=== PATIENT | male | born 1945 | race Caucasian/White ===

== ENCOUNTER 2018-08-18 13:01 | Emergency (ER) | payer MEDICARE, OTHER ==
[~2018-08-18] VITALS: Ht 177.8 cm; Wt 123.2 kg
[2018-08-18 13:50] LABS: BASO # 0.1 10^3/uL (0.0-0.2); BASO % 0.5 % (0.0-1.0); EOS % 0.1 % (0.0-3.0); HEMATOCRIT 39.1 % (42.0-52.0); HEMOGLOBIN 13.4 g/dl (13.5-17.5); LYMPH # 0.8 10^3/uL (1.5-4.5); MEAN CORPUSCULAR HEMOGLOBIN 30.7 pg (27.0-33.0); MEAN CORPUSCULAR HGB CONC 34.3 g/dl (32.0-36.5); MEAN CORPUSCULAR VOLUME 89.5 fl (80.0-96.0); MONO # 1.2 10^3/uL (0.0-0.8); MONO % 8.8 % (0.0-5.0); NEUTROPHILS % 83.8 % (36.0-66.0); PLATELET COUNT, AUTOMATED 199 10^3/uL (150-450); RED BLOOD COUNT 4.37 10^6/uL (4.30-6.10); WHITE BLOOD COUNT 13.1 10^3/uL (4.0-10.0)
[2018-08-18 14:01] LABS: VENOUS BASE EXCESS -6.3 (-2.0-2.0); VENOUS HCO3 18.5 MEQ/L (23.0-27.0); VENOUS O2 SATURATION 89.6 % (60.0-80.0); VENOUS PARTIAL PRESSURE O2 51.4 mmHg (30.0-50.0); VENOUS PH 7.342 UNITS (7.330-7.430); VENOUS STANDARD HCO3 19.2 MEQ/L; VENOUS TOTAL CO2 19.6 MEQ/L (24.0-28.0)
[2018-08-18 14:08] LABS: BLOOD UREA NITROGEN 18 MG/DL (7-18); CARBON DIOXIDE LEVEL 21 MEQ/L (21-32); CHLORIDE LEVEL 107 MEQ/L (98-107); CREATININE FOR GFR 1.07 MG/DL (0.70-1.30); GLOMERULAR FILTRATION RATE > 60.0 (>42); GLUCOSE, FASTING 193 MG/DL (70-100); POTASSIUM SERUM 4.2 MEQ/L (3.5-5.1); SODIUM LEVEL 136 MEQ/L (136-145)
[2018-08-18] MEDS ORDERED: ECOT81TA5 PO (14:15)
[2018-08-18] MEDS ORDERED: IBUP-1022 PO (14:21)
[2018-08-18] MEDS ORDERED: LOSA25TA14 PO (14:21)
[2018-08-18] MEDS ORDERED: PANT40TA3 PO (14:21)
[2018-08-18] MEDS ORDERED: TOPI200T7 PO (14:21)
[2018-08-18] MEDS ORDERED: SERT25TA PO (14:21)
[2018-08-18] MEDS ORDERED: GABA-845 PO (14:21)
[2018-08-18] MEDS ORDERED: GEMF600T5 PO (14:21)
[2018-08-18] MEDS ORDERED: PRAV10TA4 PO (14:21)
[2018-08-18] MEDS ORDERED: METF500T13 PO (14:21)
[2018-08-18] MEDS ORDERED: PROP60TA14 PO (14:21)
[2018-08-18] MEDS ORDERED: CETI5SOL3 PO (14:21)
[2018-08-18 14:39] LABS: ERYTHROCYTE SEDIMENTATION RATE 69 mm/hr (0-20)
[2018-08-18] MEDS ORDERED: ACETAMINOPHEN 325 MG TAB PO ONE (18:00)
[2018-08-18] MEDS ORDERED: NS 1,000 ML IV ONE (18:30)
[2018-08-18 19:07] VITALS: BP 101/58
[2018-08-18] MEDS ORDERED: KETOROLAC 30 MG/ML VIAL (J1885) IV ONE (19:15)
--- NOTE | 2018-08-19 07:17 | REP ---
RIGHT KNEE, COMPLETE: 08/18/2018. Clinical history: Pain, prior surgery, elevated markers for inflammation. Findings: Five views are provided. There are no prior studies. There is a right total knee arthroplasty with the three components align normally in relationship to each other and the torres martinez bone. However, there is a joint effusion seen on the lateral view. I see no osteolysis. There is no visible acute fracture. There appears to be an old healed fracture seen only in part of the proximal fibular shaft. Some subcutaneous edema noted about the knee and upper calf. Impression: 1. Right total knee arthroplasty evident without hardware abnormality but there is a suprapatellar effusion on the lateral view. 2. Bones show some old post-traumatic changes in the proximal fibula. Soft tissue swelling with subcutaneous edema about the lower thigh, knee and upper calf. Electronically Signed by Berto James MD 08/19/2018 09:52 A
--- NOTE | 2018-08-19 07:42 | REP ---
RIGHT FOOT COMPLETE: 08/18/2018. Clinical history: Chronic wound of the right foot with elevated markers for inflammation. Question osteomyelitis. Technique: Four views of the foot were provided. No prior studies. Findings: Plantar and Achilles heel spurs are seen on the posterior calcaneus. Subtalar joints grossly intact. Talonavicular, calcaneocuboid joints show marginal osteophytes but no fracture, disruption. Tarsal bones also show some degenerative changes and spurring at their margins. There is advanced degenerative change at the first MTP joint with narrowing of the joint space and large marginal osteophytes. The ulceration at the plantar aspect of the distal first metatarsal is poorly visualized on the lateral radiograph. I do not see definite destructive lesion that would clearly define osteomyelitis by plain film. The other MTP joints show minor degenerative change but greatest at the 4th. No fracture or destructive lesion of those bones. There is some periosteal reaction along the shaft of the fourth that may reflect prior stress reaction. The phalanges show no acute fracture or degenerative changes at IP joints. No destructive lesions are seen. I do not see subcutaneous emphysema. Impression: 1. 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 The known soft tissue ulceration on the plantar aspect near that joint does not show evidence of lucency or subcutaneous emphysema there in. There is no definite destructive lesion in the bone that would clearly define osteomyelitis by plain film. 2. Degenerative changes in the midfoot, hindfoot, IP joints and at the first MTP joint with the greatest degree of spurring and sclerosis. No acute fracture or destructive lesion visible. 3. Heel spurs. Electronically Signed by Berto James MD 08/19/2018 09:52 A
--- NOTE | 2018-08-19 07:43 | REP ---
RIGHT LOWER EXTREMITY DOPPLER VENOUS ULTRASOUND: 08/18/2018. Comparison: None. Clinical history: Right lower extremity pain and swelling, evaluate for DVT. Technique: The deep venous system of the right lower extremity is evaluated with cano scale imaging, compression ultrasound, color imaging and duplex Doppler interrogation. Examination from the groin through the popliteal fossa into the proximal calf. Findings: There is full compressibility from the common femoral vein in the inguinal region through the popliteal vein. Color imaging confirms patency throughout the course of the deep venous system. There is respiratory variation and augmented flow at all levels. Impression: 1. No Doppler venous ultrasound evidence of DVT in the right lower extremity. Electronically Signed by Berto James MD 08/19/2018 09:52 A
== END 2018-08-18 19:12 | disposition short-term general hospital (02) ==
LOC: EDBD 13:01 → M ED 13:01
DX: M25.561 Pain in right knee (principal); M79.89 Other specified soft tissue disorders; Z96.651 Presence of right artificial knee joint; M25.461 Effusion, right knee; E11.621 Type 2 diabetes mellitus with foot ulcer; L97.519 Non-pressure chronic ulcer of other part of right foot with unspecified severity; I10 Essential (primary) hypertension; Z87.820 Personal history of traumatic brain injury; M19.071 Primary osteoarthritis, right ankle and foot; M77.31 Calcaneal spur, right foot; Z79.899 Other long term (current) drug therapy; Z79.82 Long term (current) use of aspirin; Z79.84 Long term (current) use of oral hypoglycemic drugs

== ENCOUNTER → 2019-11-13 | Outpatient (REF) | payer OTHER, MEDICARE ==
[~2019-11-13] MED LIST: CETI5SOL3 PO; ECOT81TA5 PO; GABA-845 PO; GEMF600T5 PO; IBUP-1022 PO; LOSA25TA14 PO; METF500T13 PO; PANT40TA3 PO; PRAV10TA4 PO; PROP60TA14 PO; SERT25TA85 PO; TOPI200T7 PO
[2019-11-13 17:28] LABS: APPEARANCE, URINE CLEAR (CLEAR); BACTERIA, URINE AUTO NEGATIVE (NEGATIVE); BILIRUBIN, URINE AUTO NEGATIVE (NEGATIVE); BLOOD, URINE BLOOD NEGATIVE (NEGATIVE); COLOR, URINE YELLOW (YELLOW); GLUCOSE, URINE (UA) AUTO NEGATIVE (NEGATIVE); KETONE, URINE AUTO NEGATIVE (NEGATIVE); LEUKOCYTE ESTERASE, URINE AUTO NEGATIVE (NEGATIVE); NITRITE, URINE AUTO NEGATIVE (NEGATIVE); PROTEIN, URINE AUTO NEGATIVE (NEGATIVE); RBC, URINE AUTO 0 /HPF (0-3); SPECIFIC GRAVITY URINE AUTO 1.016 (1.002-1.035); SQUAMOUS EPITHELIAL CELL UR AU 0 /HPF (0-6); UROBILINOGEN, URINE AUTO 0.2 mg/dL (0.0-2.0); WBC, URINE AUTO 2 /HPF (0-3)
== END ==
LOC: M SFHCPLAZ 16:52
PROVIDERS: ATTEND Nurse Practitioner Women's Health
DX: N39.0 Urinary tract infection, site not specified (principal)